=== PATIENT | female | born 1990 | race Hispanic/Latino ===

== ENCOUNTER 2017-11-15 11:07 | Emergency (ER) | payer OTHER ==
[2017-11-15 11:53] LABS: KETONE, URINE AUTO RFX NEGATIVE (NEGATIVE); MUCUS, URINE RFX SMALL (NEGATIVE); NITRITE, URINE AUTO RFX NEGATIVE (NEGATIVE); RBC, URINE AUTO RFX 2 /HPF (0-3); SPECIFIC GRAVITY UR AUTO RFX 1.014 (1.002-1.035); SQUAM EPITHELIAL CELL UR AURFX 7 /HPF (0-6); WBC, URINE AUTO RFX 2 /HPF (0-3)
[2017-11-15 11:56] LABS: LEUKOCYTE ESTERASE UR AUTO RFX TRACE (NEGATIVE)
[2017-11-15] MEDS: ONDANSETRON 4MG/2ML VIAL (J2405) IV (12:51)
[2017-11-15] MEDS: MORPHINE 2 MG/ML 1ML SYRINGE (J2270) IV (12:51)
[2017-11-15] MEDS: NS 1,000 ML IV (12:52)
[2017-11-15 12:59] LABS: BASO # 0.1 10^3/uL (0.0-0.2); BASO % 0.8 % (0.0-1.0); EOS % 0.5 % (0.0-3.0); HEMATOCRIT 34.2 % (36.0-47.0); HEMOGLOBIN 10.3 g/dl (12.0-16.0); IMMATURE GRANULOCYTE % 0.2 % (0-3.0); LYMPH # 2.4 10^3/uL (1.5-6.5); LYMPH % 38.7 % (24.0-44.0); MEAN CORPUSCULAR HEMOGLOBIN 21.8 pg (27.0-33.0); MEAN CORPUSCULAR HGB CONC 30.1 g/dl (32.0-36.5); MEAN CORPUSCULAR VOLUME 72.3 fl (80.0-96.0); MONO # 0.4 10^3/uL (0.0-0.8); MONO % 6.8 % (0.0-5.0); NEUTROPHILS # 3.3 10^3/uL (1.8-7.7); PLATELET COUNT, AUTOMATED 391 10^3/uL (150-450); RED BLOOD COUNT 4.73 10^6/uL (4.00-5.40); RED CELL DISTRIBUTION WIDTH 18.1 % (11.5-14.5); WHITE BLOOD COUNT 6.2 10^3/uL (4.0-10.0)
[2017-11-15 13:26] LABS: ALBUMIN 3.9 GM/DL (3.2-5.2); ALKALINE PHOSPHATASE 65 U/L (45-117); ALT/SGPT 16 U/L (12-78); ANION GAP 6 MEQ/L (8-16); AST/SGOT 12 U/L (7-37); BILIRUBIN,DIRECT 0.1 MG/DL (0.0-0.2); BILIRUBIN,TOTAL 0.7 MG/DL (0.2-1.0); BLOOD UREA NITROGEN 10 MG/DL (7-18); CALCIUM LEVEL 8.9 MG/DL (8.5-10.1); CARBON DIOXIDE LEVEL 28 MEQ/L (21-32); CHLORIDE LEVEL 104 MEQ/L (98-107); CREATININE FOR GFR 0.62 MG/DL (0.55-1.30); GLOMERULAR FILTRATION RATE > 60.0 (>60); GLUCOSE, FASTING 75 MG/DL (70-100); LIPASE 147 U/L (73-393); POTASSIUM SERUM 3.6 MEQ/L (3.5-5.1); SODIUM LEVEL 138 MEQ/L (136-145); TOTAL PROTEIN 8.8 GM/DL (6.4-8.2)
== END 2017-11-15 13:55 | disposition home or self-care (01) ==
LOC: M ED 11:07
DX: R10.9 Unspecified abdominal pain (principal); D64.9 Anemia, unspecified; R31.29 Other microscopic hematuria; Z98.84 Bariatric surgery status; Z87.891 Personal history of nicotine dependence
CPT/HCPCS: J2405

== ENCOUNTER 2017-12-01 22:17 | Emergency (ER) | payer OTHER ==
[2017-12-01] MEDS: MORPHINE 2 MG/ML 1ML SYRINGE (J2270) IV (23:33)
[2017-12-01] MEDS: NS 1,000 ML IV (23:37)
[2017-12-01 23:40] LABS: BASO # 0.1 10^3/uL (0.0-0.2); EOS # 0.1 10^3/uL (0.0-0.50); HEMOGLOBIN 9.7 g/dl (12.0-16.0); IMMATURE GRANULOCYTE % 0.3 % (0-3.0); LYMPH # 2.9 10^3/uL (1.5-6.5); LYMPH % 40.6 % (24.0-44.0); MEAN CORPUSCULAR HGB CONC 30.3 g/dl (32.0-36.5); MEAN CORPUSCULAR VOLUME 72.6 fl (80.0-96.0); MONO # 0.6 10^3/uL (0.0-0.8); NEUTROPHILS # 3.4 10^3/uL (1.8-7.7); NEUTROPHILS % 48.1 % (36.0-66.0); PLATELET COUNT, AUTOMATED 354 10^3/uL (150-450); RED BLOOD COUNT 4.41 10^6/uL (4.00-5.40); RED CELL DISTRIBUTION WIDTH 17.9 % (11.5-14.5); WHITE BLOOD COUNT 7.1 10^3/uL (4.0-10.0)
[2017-12-01 23:41] LABS: ALBUMIN 3.7 GM/DL (3.2-5.2); ALBUMIN/GLOBULIN RATIO 0.84 (1.00-1.93); ALKALINE PHOSPHATASE 66 U/L (45-117); ALT/SGPT 15 U/L (12-78); ANION GAP 7 MEQ/L (8-16); AST/SGOT 12 U/L (7-37); BILIRUBIN,DIRECT 0.2 MG/DL (0.0-0.2); BILIRUBIN,TOTAL 0.5 MG/DL (0.2-1.0); BLOOD UREA NITROGEN 9 MG/DL (7-18); CARBON DIOXIDE LEVEL 25 MEQ/L (21-32); CHLORIDE LEVEL 107 MEQ/L (98-107); CREATININE FOR GFR 0.72 MG/DL (0.55-1.30); GLOMERULAR FILTRATION RATE > 60.0 (>60); GLUCOSE, FASTING 76 MG/DL (70-100); LIPASE 201 U/L (73-393); POTASSIUM SERUM 3.8 MEQ/L (3.5-5.1); SODIUM LEVEL 139 MEQ/L (136-145); TOTAL PROTEIN 8.1 GM/DL (6.4-8.2)
[2017-12-01 23:53] LABS: INR 0.99; PROTHROMBIN TIME 13.2 SECONDS (12.4-14.5)
[2017-12-01 23:54] LABS: PARTIAL THROMBOPLASTIN TIME 27.5 SECONDS (26.8-37.9)
[2017-12-02 00:02] LABS: KETONE, URINE AUTO RFX NEGATIVE (NEGATIVE); LEUKOCYTE ESTERASE UR AUTO RFX NEGATIVE (NEGATIVE); NITRITE, URINE AUTO RFX NEGATIVE (NEGATIVE); RBC, URINE AUTO RFX 1 /HPF (0-3); SPECIFIC GRAVITY UR AUTO RFX 1.001 (1.002-1.035); SQUAM EPITHELIAL CELL UR AURFX 0 /HPF (0-6); WBC, URINE AUTO RFX 1 /HPF (0-3)
[2017-12-02 00:29] LABS: HCG, SERUM QUANTITATIVE < 1.0 MIU/ML
[2017-12-02] MEDS: MORPHINE 2 MG/ML 1ML SYRINGE (J2270) IV (01:05)
[2017-12-02 04:44] LABS: CHLAMYDIA DNA AMPLIFICATION NEGATIVE (NEGATIVE); GC DNA AMPLIFICATION NEGATIVE (NEGATIVE)
== END 2017-12-02 02:31 | disposition home or self-care (01) ==
LOC: M ED 12-02 02:31
DX: N93.9 Abnormal uterine and vaginal bleeding, unspecified (principal); D64.9 Anemia, unspecified; Z98.84 Bariatric surgery status
CPT/HCPCS: J2270

== ENCOUNTER 2018-03-22 18:57 | Observation (INO) | payer OTHER ==
[2018-03-22] MEDS: NS 1,000 ML IV (20:30)
[2018-03-22 21:09] LABS: BASO % 0.2 % (0.0-1.0); HEMATOCRIT 35.2 % (36.0-47.0); HEMOGLOBIN 10.6 g/dl (12.0-15.5); IMMATURE GRANULOCYTE % 0.1 % (0-3.0); LYMPH # 0.5 10^3/uL (1.5-6.5); LYMPH % 6.4 % (24.0-44.0); MEAN CORPUSCULAR HEMOGLOBIN 20.3 pg (27.0-33.0); MEAN CORPUSCULAR HGB CONC 30.1 g/dl (32.0-36.5); MEAN CORPUSCULAR VOLUME 67.6 fl (80.0-96.0); MONO # 0.1 10^3/uL (0.0-0.8); MONO % 1.4 % (0.0-5.0); NEUTROPHILS # 7.4 10^3/uL (1.8-7.7); NEUTROPHILS % 91.9 % (36.0-66.0); PLATELET COUNT, AUTOMATED 294 10^3/uL (150-450); RED BLOOD COUNT 5.21 10^6/uL (4.00-5.40); RED CELL DISTRIBUTION WIDTH 18.3 % (11.5-14.5); WHITE BLOOD COUNT 8.1 10^3/uL (4.0-10.0)
[2018-03-22 21:31] LABS: ALBUMIN 3.6 GM/DL (3.2-5.2); ALBUMIN/GLOBULIN RATIO 0.62 (1.00-1.93); ALKALINE PHOSPHATASE 62 U/L (45-117); ALT/SGPT 17 U/L (12-78); AMYLASE 48 U/L (25-115); ANION GAP 10 MEQ/L (8-16); AST/SGOT 16 U/L (7-37); BILIRUBIN,DIRECT 0.1 MG/DL (0.0-0.2); BILIRUBIN,TOTAL 0.5 MG/DL (0.2-1.0); BLOOD UREA NITROGEN 12 MG/DL (7-18); CALCIUM LEVEL 9.2 MG/DL (8.5-10.1); CARBON DIOXIDE LEVEL 24 MEQ/L (21-32); CHLORIDE LEVEL 104 MEQ/L (98-107); GLOMERULAR FILTRATION RATE > 60.0 (>60); GLUCOSE, FASTING 129 MG/DL (70-100); LIPASE 125 U/L (73-393); SODIUM LEVEL 138 MEQ/L (136-145); TOTAL PROTEIN 9.4 GM/DL (6.4-8.2)
[2018-03-22 21:32] LABS: LACTIC ACID SEPSIS PROTOCOL 1.7 MMOL/L (0.4-2.0)
[2018-03-22] MEDS: MORPHINE 4 MG/ML 1ML VIAL/SYRINGE (J2270) IV ×2 (22:05→23:27)
[2018-03-22] MEDS: ONDANSETRON 4MG/2ML VIAL (J2405) IV ×2 (22:05→23:13)
[2018-03-22] MEDS: GI COCKTAIL 50ML BTL(HYOSCYAMINE/MAALOX/LIDOCAINE VISCOUS)(1:3:1) PO (23:00)
[2018-03-23] MEDS ORDERED: MORPHINE 4 MG/ML 1ML VIAL/SYRINGE (J2270) IV ×2 (01:15)
[2018-03-23] MEDS ORDERED: ONDANSETRON 4MG/2ML VIAL (J2405) IV (01:15)
[2018-03-23] MEDS ORDERED: KETOROLAC 30 MG/ML VIAL (J1885) IV (01:15)
[2018-03-23] MEDS: METOCLOPRAMIDE INJ 10MG/2ML VIAL (J2765) IV (01:43)
[2018-03-23] MEDS: LR 1,000 ML IV ×3 (01:44→18:38)
[2018-03-23 08:26] LABS: BASO % 0.2 % (0.0-1.0); HEMATOCRIT 27.9 % (36.0-47.0); IMMATURE GRANULOCYTE % 0.2 % (0-3.0); LYMPH # 1.3 10^3/uL (1.5-6.5); LYMPH % 15.7 % (24.0-44.0); MEAN CORPUSCULAR HEMOGLOBIN 20.5 pg (27.0-33.0); MEAN CORPUSCULAR HGB CONC 30.5 g/dl (32.0-36.5); MEAN CORPUSCULAR VOLUME 67.4 fl (80.0-96.0); MONO # 0.6 10^3/uL (0.0-0.8); MONO % 7.2 % (0.0-5.0); NEUTROPHILS # 6.6 10^3/uL (1.8-7.7); NEUTROPHILS % 76.7 % (36.0-66.0); PLATELET COUNT, AUTOMATED 270 10^3/uL (150-450); RED BLOOD COUNT 4.14 10^6/uL (4.00-5.40); RED CELL DISTRIBUTION WIDTH 18.5 % (11.5-14.5); WHITE BLOOD COUNT 8.6 10^3/uL (4.0-10.0)
[2018-03-23 08:33] LABS: HEMOGLOBIN 8.5 g/dl (12.0-15.5)
[2018-03-23] MEDS: PANTOPRAZOLE 40MG INJ (PROTONIX) (C9113) IV (08:41)
[2018-03-23 08:49] LABS: ANION GAP 8 MEQ/L (8-16); BLOOD UREA NITROGEN 12 MG/DL (7-18); CALCIUM LEVEL 8.3 MG/DL (8.5-10.1); CARBON DIOXIDE LEVEL 24 MEQ/L (21-32); CHLORIDE LEVEL 110 MEQ/L (98-107); CREATININE FOR GFR 0.62 MG/DL (0.55-1.30); GLOMERULAR FILTRATION RATE > 60.0 (>60); GLUCOSE, FASTING 83 MG/DL (70-100); POTASSIUM SERUM 4.3 MEQ/L (3.5-5.1); SODIUM LEVEL 142 MEQ/L (136-145)
[2018-03-24] MEDS: LR 1,000 ML IV (02:33)
[2018-03-24] MEDS: PANTOPRAZOLE 40MG TAB (PROTONIX) PO (09:06)
[2018-03-24] MEDS: ACETAMINOPHEN TAB 650MG DOSE (2X325MG) PO (09:06)
== END 2018-03-24 15:12 | disposition home or self-care (01) ==
LOC: M ED INP 18:58 → M ED 18:57 → M PED 03-23 02:37
DX: K56.609 Unspecified intestinal obstruction, unspecified as to partial versus complete obstruction (principal); Z98.84 Bariatric surgery status; D64.9 Anemia, unspecified; R11.2 Nausea with vomiting, unspecified
CPT/HCPCS: C9113

== ENCOUNTER 2018-05-28 14:52 | Emergency (ER) | payer OTHER ==
[2018-05-28] MEDS: NS 1,000 ML IV ×2 (15:47→20:40)
[2018-05-28] MEDS: ONDANSETRON 4MG/2ML VIAL (J2405) IV (15:47)
[2018-05-28] MEDS: MORPHINE 4 MG/ML 1ML VIAL/SYRINGE (J2270) IV (15:47)
[2018-05-28 15:50] LABS: BASO # 0.1 10^3/uL (0.0-0.2); BASO % 0.6 % (0.0-1.0); EOS # 0.1 10^3/uL (0.0-0.50); EOS % 0.9 % (0.0-3.0); HEMATOCRIT 31.7 % (36.0-47.0); HEMOGLOBIN 9.3 g/dl (12.0-15.5); IMMATURE GRANULOCYTE % 0.3 % (0-3.0); LYMPH # 2.8 10^3/uL (1.5-6.5); LYMPH % 31.8 % (24.0-44.0); MEAN CORPUSCULAR HGB CONC 29.3 g/dl (32.0-36.5); MONO # 0.6 10^3/uL (0.0-0.8); MONO % 6.4 % (0.0-5.0); NEUTROPHILS # 5.2 10^3/uL (1.8-7.7); PLATELET COUNT, AUTOMATED 362 10^3/uL (150-450); RED BLOOD COUNT 4.66 10^6/uL (4.00-5.40); RED CELL DISTRIBUTION WIDTH 18.5 % (11.5-14.5); WHITE BLOOD COUNT 8.7 10^3/uL (4.0-10.0)
[2018-05-28 16:14] LABS: ALBUMIN 3.4 GM/DL (3.2-5.2); ALBUMIN/GLOBULIN RATIO 0.71 (1.00-1.93); ALKALINE PHOSPHATASE 51 U/L (45-117); ALT/SGPT 17 U/L (12-78); AMYLASE 48 U/L (25-115); ANION GAP 8 MEQ/L (8-16); AST/SGOT 10 U/L (7-37); BILIRUBIN,DIRECT 0.1 MG/DL (0.0-0.2); BILIRUBIN,TOTAL 0.4 MG/DL (0.2-1.0); BLOOD UREA NITROGEN 7 MG/DL (7-18); CALCIUM LEVEL 8.6 MG/DL (8.5-10.1); CARBON DIOXIDE LEVEL 26 MEQ/L (21-32); CHLORIDE LEVEL 107 MEQ/L (98-107); CREATININE FOR GFR 0.64 MG/DL (0.55-1.30); GLOMERULAR FILTRATION RATE > 60.0 (>60); GLUCOSE, FASTING 76 MG/DL (70-100); LIPASE 129 U/L (73-393); POTASSIUM SERUM 3.9 MEQ/L (3.5-5.1); SODIUM LEVEL 141 MEQ/L (136-145); TOTAL PROTEIN 8.2 GM/DL (6.4-8.2)
[2018-05-28] MEDS: PANTOPRAZOLE 40MG INJ (PROTONIX) (C9113) IV (16:21)
[2018-05-28] MEDS ORDERED: ISOVUE-370 76% 100ML VIAL (Q9967) As Ordered (16:21)
[2018-05-28] MEDS: KETOROLAC 30 MG/ML VIAL (J1885) IV (16:21)
[2018-05-28] MEDS: HYDROMORPHONE HCL 0.5 MG/ 0.5 ML SYRINGE (J1170 PER 1) IV ×4 (18:46→22:31)
[2018-05-28 20:50] LABS: KETONE, URINE AUTO RFX NEGATIVE (NEGATIVE); LEUKOCYTE ESTERASE UR AUTO RFX NEGATIVE (NEGATIVE); MUCUS, URINE RFX SMALL (NEGATIVE); NITRITE, URINE AUTO RFX NEGATIVE (NEGATIVE); RBC, URINE AUTO RFX 2 /HPF (0-3); SQUAM EPITHELIAL CELL UR AURFX 14 /HPF (0-6); WBC, URINE AUTO RFX 1 /HPF (0-3)
[2018-05-28 20:51] LABS: SPECIFIC GRAVITY UR AUTO RFX >1.060 (1.002-1.035)
== END 2018-05-28 22:48 | disposition short-term general hospital (02) ==
LOC: M ED 14:52
DX: K56.609 Unspecified intestinal obstruction, unspecified as to partial versus complete obstruction (principal); Z98.84 Bariatric surgery status
CPT/HCPCS: C9113

== ENCOUNTER → 2018-07-15 | Outpatient (REF) | payer OTHER ==
[2018-07-15 16:39] LABS: HEMATOCRIT 25.9 % (36.0-47.0); HEMOGLOBIN 8.1 g/dl (12.0-15.5); MEAN CORPUSCULAR HEMOGLOBIN 24.8 pg (27.0-33.0); MEAN CORPUSCULAR HGB CONC 31.3 g/dl (32.0-36.5); MEAN CORPUSCULAR VOLUME 79.2 fl (80.0-96.0); PLATELET COUNT, AUTOMATED 488 10^3/uL (150-450); RED BLOOD COUNT 3.27 10^6/uL (4.00-5.40); RED CELL DISTRIBUTION WIDTH 24.3 % (11.5-14.5); WHITE BLOOD COUNT 7.5 10^3/uL (4.0-10.0)
[2018-07-15 17:06] LABS: ALBUMIN 2.2 GM/DL (3.2-5.2); ALBUMIN/GLOBULIN RATIO 0.37 (1.00-1.93); ALKALINE PHOSPHATASE 76 U/L (45-117); ALT/SGPT 25 U/L (12-78); ANION GAP 8 MEQ/L (8-16); AST/SGOT 20 U/L (7-37); BILIRUBIN,TOTAL 0.2 MG/DL (0.2-1.0); BLOOD UREA NITROGEN 15 MG/DL (7-18); CALCIUM LEVEL 8.1 MG/DL (8.5-10.1); CARBON DIOXIDE LEVEL 26 MEQ/L (21-32); CHLORIDE LEVEL 104 MEQ/L (98-107); CREATININE FOR GFR 0.43 MG/DL (0.55-1.30); GLOMERULAR FILTRATION RATE > 60.0 (>60); GLUCOSE, FASTING 63 MG/DL (70-100); MAGNESIUM LEVEL 1.6 MG/DL (1.8-2.4); PHOSPHORUS LEVEL 3.5 MG/DL (2.5-4.9); POTASSIUM SERUM 4.2 MEQ/L (3.5-5.1); SODIUM LEVEL 138 MEQ/L (136-145); TOTAL PROTEIN 8.2 GM/DL (6.4-8.2); TRIGLYCERIDES LEVEL 65 MG/DL (<150)
== END ==
LOC: M LAB REF 15:24
DX: E46 Unspecified protein-calorie malnutrition (principal)

== ENCOUNTER → 2018-07-21 | Outpatient (REF) | payer OTHER ==
[2018-07-21 18:38] LABS: ALBUMIN 2.5 GM/DL (3.2-5.2); ALBUMIN/GLOBULIN RATIO 0.42 (1.00-1.93); ALKALINE PHOSPHATASE 67 U/L (45-117); ALT/SGPT 19 U/L (12-78); ANION GAP 10 MEQ/L (8-16); AST/SGOT 16 U/L (7-37); BILIRUBIN,TOTAL 0.3 MG/DL (0.2-1.0); BLOOD UREA NITROGEN 14 MG/DL (7-18); CALCIUM LEVEL 8.2 MG/DL (8.5-10.1); CARBON DIOXIDE LEVEL 22 MEQ/L (21-32); CHLORIDE LEVEL 105 MEQ/L (98-107); CREATININE FOR GFR 0.46 MG/DL (0.55-1.30); GLOMERULAR FILTRATION RATE > 60.0 (>60); GLUCOSE, FASTING 55 MG/DL (70-100); MAGNESIUM LEVEL 1.6 MG/DL (1.8-2.4); PHOSPHORUS LEVEL 4.3 MG/DL (2.5-4.9); POTASSIUM SERUM 4.4 MEQ/L (3.5-5.1); SODIUM LEVEL 137 MEQ/L (136-145); TOTAL PROTEIN 8.4 GM/DL (6.4-8.2)
[2018-07-21 19:48] LABS: HEMATOCRIT 27.6 % (36.0-47.0); HEMOGLOBIN 8.7 g/dl (12.0-15.5); MEAN CORPUSCULAR HGB CONC 31.5 g/dl (32.0-36.5); MEAN CORPUSCULAR VOLUME 79.3 fl (80.0-96.0); PLATELET COUNT, AUTOMATED 472 10^3/uL (150-450); RED BLOOD COUNT 3.48 10^6/uL (4.00-5.40); RED CELL DISTRIBUTION WIDTH 25.3 % (11.5-14.5); WHITE BLOOD COUNT 6.8 10^3/uL (4.0-10.0)
== END ==
LOC: M LAB REF 17:31
DX: E86.0 Dehydration (principal)

== ENCOUNTER → 2018-07-29 | Outpatient (REF) | payer OTHER ==
[2018-07-29 14:50] LABS: HEMATOCRIT 29.9 % (36.0-47.0); HEMOGLOBIN 9.3 g/dl (12.0-15.5); MEAN CORPUSCULAR HEMOGLOBIN 26.1 pg (27.0-33.0); MEAN CORPUSCULAR HGB CONC 31.1 g/dl (32.0-36.5); PLATELET COUNT, AUTOMATED 353 10^3/uL (150-450); RED BLOOD COUNT 3.56 10^6/uL (4.00-5.40); RED CELL DISTRIBUTION WIDTH 24.2 % (11.5-14.5); WHITE BLOOD COUNT 5.2 10^3/uL (4.0-10.0)
[2018-07-29 23:29] LABS: ALBUMIN 2.7 GM/DL (3.2-5.2); ALBUMIN/GLOBULIN RATIO 0.56 (1.00-1.93); ALKALINE PHOSPHATASE 55 U/L (45-117); ALT/SGPT 25 U/L (12-78); ANION GAP 9 MEQ/L (8-16); AST/SGOT 19 U/L (7-37); BILIRUBIN,TOTAL 0.4 MG/DL (0.2-1.0); BLOOD UREA NITROGEN 10 MG/DL (7-18); CALCIUM LEVEL 8.9 MG/DL (8.5-10.1); CARBON DIOXIDE LEVEL 23 MEQ/L (21-32); CHLORIDE LEVEL 108 MEQ/L (98-107); CREATININE FOR GFR 0.52 MG/DL (0.55-1.30); GLOMERULAR FILTRATION RATE > 60.0 (>60); GLUCOSE, FASTING 68 MG/DL (70-100); MAGNESIUM LEVEL 1.5 MG/DL (1.8-2.4); POTASSIUM SERUM 3.8 MEQ/L (3.5-5.1); SODIUM LEVEL 140 MEQ/L (136-145); TOTAL PROTEIN 7.5 GM/DL (6.4-8.2)
== END ==
LOC: M LAB REF 14:31
DX: E86.0 Dehydration (principal)

== ENCOUNTER → 2018-08-04 | Outpatient (REF) | payer OTHER ==
[2018-08-04 18:41] LABS: HEMATOCRIT 32.1 % (36.0-47.0); HEMOGLOBIN 10.2 g/dl (12.0-15.5); MEAN CORPUSCULAR HEMOGLOBIN 26.8 pg (27.0-33.0); MEAN CORPUSCULAR HGB CONC 31.8 g/dl (32.0-36.5); MEAN CORPUSCULAR VOLUME 84.3 fl (80.0-96.0); PLATELET COUNT, AUTOMATED 328 10^3/uL (150-450); RED BLOOD COUNT 3.81 10^6/uL (4.00-5.40); RED CELL DISTRIBUTION WIDTH 21.2 % (11.5-14.5); WHITE BLOOD COUNT 5.6 10^3/uL (4.0-10.0)
[2018-08-04 19:17] LABS: ALBUMIN 2.9 GM/DL (3.2-5.2); ALBUMIN/GLOBULIN RATIO 0.56 (1.00-1.93); ALKALINE PHOSPHATASE 57 U/L (45-117); ALT/SGPT 34 U/L (12-78); ANION GAP 9 MEQ/L (8-16); AST/SGOT 20 U/L (7-37); BILIRUBIN,TOTAL 0.3 MG/DL (0.2-1.0); BLOOD UREA NITROGEN 11 MG/DL (7-18); CALCIUM LEVEL 8.2 MG/DL (8.5-10.1); CARBON DIOXIDE LEVEL 24 MEQ/L (21-32); CHLORIDE LEVEL 108 MEQ/L (98-107); CREATININE FOR GFR 0.53 MG/DL (0.55-1.30); GLOMERULAR FILTRATION RATE > 60.0 (>60); GLUCOSE, FASTING 63 MG/DL (70-100); MAGNESIUM LEVEL 1.4 MG/DL (1.8-2.4); PHOSPHORUS LEVEL 3.2 MG/DL (2.5-4.9); POTASSIUM SERUM 3.7 MEQ/L (3.5-5.1); SODIUM LEVEL 141 MEQ/L (136-145); TOTAL PROTEIN 8.1 GM/DL (6.4-8.2)
== END ==
LOC: M LAB REF 17:44
DX: E46 Unspecified protein-calorie malnutrition (principal)
CPT/HCPCS: 83735

== ENCOUNTER 2018-08-05 20:00 | Emergency (ER) | payer OTHER ==
[2018-08-05 21:30] LABS: BASO % 0.4 % (0.0-1.0); EOS # 0.1 10^3/uL (0.0-0.50); EOS % 2.5 % (0.0-3.0); HEMATOCRIT 34.8 % (36.0-47.0); HEMOGLOBIN 10.9 g/dl (12.0-15.5); IMMATURE GRANULOCYTE % 0.4 % (0-3.0); LYMPH # 2.5 10^3/uL (1.5-6.5); LYMPH % 47.8 % (24.0-44.0); MEAN CORPUSCULAR HEMOGLOBIN 26.8 pg (27.0-33.0); MEAN CORPUSCULAR HGB CONC 31.3 g/dl (32.0-36.5); MEAN CORPUSCULAR VOLUME 85.7 fl (80.0-96.0); MONO # 0.3 10^3/uL (0.0-0.8); MONO % 5.8 % (0.0-5.0); NEUTROPHILS # 2.2 10^3/uL (1.8-7.7); NEUTROPHILS % 43.1 % (36.0-66.0); PLATELET COUNT, AUTOMATED 324 10^3/uL (150-450); RED BLOOD COUNT 4.06 10^6/uL (4.00-5.40); RED CELL DISTRIBUTION WIDTH 21.1 % (11.5-14.5); WHITE BLOOD COUNT 5.1 10^3/uL (4.0-10.0)
[2018-08-05 21:38] LABS: INR 0.96; PROTHROMBIN TIME 12.8 SECONDS (12.1-14.4)
[2018-08-05 21:39] LABS: PARTIAL THROMBOPLASTIN TIME 29.5 SECONDS (25.4-37.6)
[2018-08-05 21:53] LABS: ERYTHROCYTE SEDIMENTATION RATE 43 mm/hr (0-20)
[2018-08-05 21:57] LABS: ALBUMIN 3.2 GM/DL (3.2-5.2); ALBUMIN/GLOBULIN RATIO 0.58 (1.00-1.93); ALKALINE PHOSPHATASE 63 U/L (45-117); ALT/SGPT 35 U/L (12-78); ANION GAP 8 MEQ/L (8-16); AST/SGOT 21 U/L (7-37); BILIRUBIN,DIRECT < 0.1 MG/DL (0.0-0.2); BILIRUBIN,TOTAL 0.2 MG/DL (0.2-1.0); BLOOD UREA NITROGEN 13 MG/DL (7-18); C REACTIVE PROTEIN QUANTITATIV < 0.30 MG/DL (0.00-0.30); CALCIUM LEVEL 8.5 MG/DL (8.5-10.1); CARBON DIOXIDE LEVEL 25 MEQ/L (21-32); CHLORIDE LEVEL 107 MEQ/L (98-107); CREATININE FOR GFR 0.68 MG/DL (0.55-1.30); GLOMERULAR FILTRATION RATE > 60.0 (>60); GLUCOSE, FASTING 73 MG/DL (70-100); POTASSIUM SERUM 3.8 MEQ/L (3.5-5.1); SODIUM LEVEL 140 MEQ/L (136-145); TOTAL PROTEIN 8.7 GM/DL (6.4-8.2)
[2018-08-05] MEDS ORDERED: ISOVUE-370 76% 100ML VIAL (Q9967) As Ordered (22:00)
[2018-08-05 23:00] LABS: D-DIMER QUANT 1979.7 ng/ml (<500)
[2018-08-05] MEDS ORDERED: APIXABAN 5 MG TAB (ELIQUIS) PO (23:45)
== END 2018-08-06 | disposition home or self-care (01) ==
LOC: M ED 08-06
DX: M79.601 Pain in right arm (principal); R93.1 Abnormal findings on diagnostic imaging of heart and coronary circulation; B35.0 Tinea barbae and tinea capitis; R06.02 Shortness of breath; Z87.19 Personal history of other diseases of the digestive system; Z90.3 Acquired absence of stomach [part of]; Z98.84 Bariatric surgery status; Z83.2 Family history of diseases of the blood and blood-forming organs and certain disorders involving the immune mechanism; Z86.19 Personal history of other infectious and parasitic diseases
CPT/HCPCS: Q9967

== ENCOUNTER 2018-08-20 13:05 | Inpatient (IN) | payer OTHER ==
[2018-08-20] MEDS: MULTIVITAMINS CHILDREN'S CHEWABLE TABLET PO (09:00)
[2018-08-20] MEDS: VITAMIN D 1,000 INTERNATIONAL UNITS TABLET PO (09:00)
[~2018-08-20 13:05] MED LIST: OMEPRAZOLE 20 MG CAP PO
[2018-08-20] MEDS: NS 1,000 ML IV (13:48)
[2018-08-20] MEDS: PANTOPRAZOLE 40MG INJ (PROTONIX) (C9113) IV ×2 (13:48→21:00)
[2018-08-20] MEDS: MORPHINE 4 MG/ML 1ML VIAL/SYRINGE (J2270) IV (13:49)
[2018-08-20 13:56] LABS: BASO % 0.7 % (0.0-1.0); EOS # 0.1 10^3/uL (0.0-0.50); EOS % 1.4 % (0.0-3.0); HEMATOCRIT 38.3 % (36.0-47.0); IMMATURE GRANULOCYTE % 0.3 % (0-3.0); LYMPH # 2.2 10^3/uL (1.5-6.5); LYMPH % 37.3 % (24.0-44.0); MEAN CORPUSCULAR HGB CONC 31.3 g/dl (32.0-36.5); MEAN CORPUSCULAR VOLUME 89.3 fl (80.0-96.0); MONO # 0.4 10^3/uL (0.0-0.8); MONO % 6.9 % (0.0-5.0); NEUTROPHILS # 3.1 10^3/uL (1.8-7.7); NEUTROPHILS % 53.4 % (36.0-66.0); PLATELET COUNT, AUTOMATED 302 10^3/uL (150-450); RED BLOOD COUNT 4.29 10^6/uL (4.00-5.40); RED CELL DISTRIBUTION WIDTH 16.9 % (11.5-14.5); WHITE BLOOD COUNT 5.8 10^3/uL (4.0-10.0)
[2018-08-20 14:06] LABS: INR 1.01; PROTHROMBIN TIME 13.4 SECONDS (12.1-14.4)
[2018-08-20 14:07] LABS: PARTIAL THROMBOPLASTIN TIME 32.8 SECONDS (25.4-37.6)
[2018-08-20] MEDS: GASTROGRAFIN SOLUTION 30ML PO ×2 (14:07→14:36)
[2018-08-20 14:27] LABS: CONTROL LINE HCG INT CTR LINE PRESENT; HCG, SERUM QUALITATIVE NEGATIVE (NEGATIVE)
[2018-08-20 14:37] LABS: ALBUMIN 3.6 GM/DL (3.2-5.2); ALBUMIN/GLOBULIN RATIO 0.73 (1.00-1.93); ALKALINE PHOSPHATASE 49 U/L (45-117); ALT/SGPT 15 U/L (12-78); AMYLASE 70 U/L (25-115); ANION GAP 8 MEQ/L (8-16); AST/SGOT 11 U/L (7-37); BILIRUBIN,DIRECT < 0.1 MG/DL (0.0-0.2); BILIRUBIN,TOTAL 0.4 MG/DL (0.2-1.0); BLOOD UREA NITROGEN 9 MG/DL (7-18); CALCIUM LEVEL 9.3 MG/DL (8.5-10.1); CARBON DIOXIDE LEVEL 25 MEQ/L (21-32); CHLORIDE LEVEL 107 MEQ/L (98-107); GLOMERULAR FILTRATION RATE > 60.0 (>60); GLUCOSE, FASTING 42 MG/DL (70-100); LIPASE 259 U/L (73-393); POTASSIUM SERUM 3.7 MEQ/L (3.5-5.1); SODIUM LEVEL 140 MEQ/L (136-145); TOTAL PROTEIN 8.5 GM/DL (6.4-8.2)
[2018-08-20 14:38] LABS: LACTIC ACID SEPSIS PROTOCOL 2.4 MMOL/L (0.4-2.0)
[2018-08-20] MEDS: DEXTROSE 50% 50 ML SYRINGE IV (15:03)
[2018-08-20] MEDS: fentaNYL 100 MCG/2 ML INJECTION (J3010) IV ×2 (15:04→17:43)
[2018-08-20 15:34] LABS: BEDSIDE GLUCOSE 70 MG/DL (70-105)
[2018-08-20] MEDS ORDERED: ISOVUE-370 76% 100ML VIAL (Q9967) As Ordered (15:34)
[2018-08-20] MEDS: GI COCKTAIL 50ML BTL(HYOSCYAMINE/MAALOX/LIDOCAINE VISCOUS)(1:3:1) PO (15:40)
[2018-08-20] MEDS: D5W/LR 1,000 ML IV (15:40)
[2018-08-20 16:14] LABS: BEDSIDE GLUCOSE 54 MG/DL (70-105)
[2018-08-20 17:14] LABS: BEDSIDE GLUCOSE 67 MG/DL (70-105)
[2018-08-20 17:44] LABS: HEMATOCRIT 32.7 % (36.0-47.0); HEMOGLOBIN 10.2 g/dl (12.0-15.5); MEAN CORPUSCULAR HEMOGLOBIN 27.6 pg (27.0-33.0); MEAN CORPUSCULAR HGB CONC 31.2 g/dl (32.0-36.5); MEAN CORPUSCULAR VOLUME 88.6 fl (80.0-96.0); PLATELET COUNT, AUTOMATED 232 10^3/uL (150-450); RED BLOOD COUNT 3.69 10^6/uL (4.00-5.40); RED CELL DISTRIBUTION WIDTH 16.8 % (11.5-14.5); WHITE BLOOD COUNT 5.7 10^3/uL (4.0-10.0)
[2018-08-20 18:11] LABS: LIPASE 418 U/L (73-393)
[2018-08-20 18:17] LABS: BEDSIDE GLUCOSE 75 MG/DL (70-105)
[2018-08-20] MEDS ORDERED: MORPHINE 4 MG/ML 1ML VIAL/SYRINGE (J2270) IV (19:15)
[2018-08-20] MEDS ORDERED: ONDANSETRON 4MG/2ML VIAL (J2405) IV (19:15)
[2018-08-20] MEDS ORDERED: ENOXAPARIN 80 MG/0.8 ML SYRINGE (J1650) SC (20:00)
[2018-08-20] MEDS ORDERED: HYDROMORPHONE HCL 0.5 MG/ 0.5 ML SYRINGE (J1170 PER 1) IV (21:30)
[2018-08-20] MEDS: HYDROMORPHONE HCL 0.5 MG/ 0.5 ML SYRINGE (J1170 PER 1) IV (21:55)
[2018-08-20] MEDS: FERROUS SULFATE 325MG TAB PO (22:32)
[2018-08-20] MEDS: LACTOBACILLUS ACIDOPHILUS CAP (BACID) PO (22:33)
[2018-08-20] MEDS: SENOKOT S TAB PO (22:34)
[2018-08-20 23:34] LABS: BEDSIDE GLUCOSE 72 MG/DL (70-105)
[2018-08-21] MEDS: D5W/LR 1,000 ML IV ×4 (00:18→15:07)
[2018-08-21 00:23] LABS: BEDSIDE GLUCOSE 72 MG/DL (70-105)
[2018-08-21] MEDS: HYDROMORPHONE HCL 0.5 MG/ 0.5 ML SYRINGE (J1170 PER 1) IV ×2 (01:10→19:17)
[2018-08-21] MEDS: ENOXAPARIN 80 MG/0.8 ML SYRINGE (J1650) SC ×2 (01:11→12:44)
[2018-08-21 04:54] LABS: BEDSIDE GLUCOSE 73 MG/DL (70-105)
[2018-08-21 07:49] LABS: HEMATOCRIT 30.5 % (36.0-47.0); HEMOGLOBIN 9.8 g/dl (12.0-15.5); MEAN CORPUSCULAR HEMOGLOBIN 27.8 pg (27.0-33.0); MEAN CORPUSCULAR HGB CONC 32.1 g/dl (32.0-36.5); MEAN CORPUSCULAR VOLUME 86.4 fl (80.0-96.0); PLATELET COUNT, AUTOMATED 243 10^3/uL (150-450); RED BLOOD COUNT 3.53 10^6/uL (4.00-5.40); RED CELL DISTRIBUTION WIDTH 16.3 % (11.5-14.5); WHITE BLOOD COUNT 4.5 10^3/uL (4.0-10.0)
[2018-08-21 08:08] LABS: INR 1.08; PROTHROMBIN TIME 14.2 SECONDS (12.1-14.4)
[2018-08-21 08:19] LABS: ALBUMIN 2.6 GM/DL (3.2-5.2); ALBUMIN/GLOBULIN RATIO 0.59 (1.00-1.93); ALKALINE PHOSPHATASE 33 U/L (45-117); ALT/SGPT 12 U/L (12-78); ANION GAP 6 MEQ/L (8-16); AST/SGOT 10 U/L (7-37); BILIRUBIN,TOTAL 0.3 MG/DL (0.2-1.0); BLOOD UREA NITROGEN 8 MG/DL (7-18); CALCIUM LEVEL 8.5 MG/DL (8.5-10.1); CARBON DIOXIDE LEVEL 26 MEQ/L (21-32); CHLORIDE LEVEL 108 MEQ/L (98-107); CREATININE FOR GFR 0.56 MG/DL (0.55-1.30); GLOMERULAR FILTRATION RATE > 60.0 (>60); GLUCOSE, FASTING 73 MG/DL (70-100); LIPASE 180 U/L (73-393); MAGNESIUM LEVEL 1.8 MG/DL (1.8-2.4); POTASSIUM SERUM 3.7 MEQ/L (3.5-5.1); SODIUM LEVEL 140 MEQ/L (136-145)
[2018-08-21] MEDS: FERROUS SULFATE 325MG TAB PO (10:40)
[2018-08-21] MEDS: LACTOBACILLUS ACIDOPHILUS CAP (BACID) PO (10:40)
[2018-08-21] MEDS: MULTIVITAMINS CHILDREN'S CHEWABLE TABLET PO (10:41)
[2018-08-21] MEDS: VITAMIN D 1,000 INTERNATIONAL UNITS TABLET PO (10:41)
[2018-08-21] MEDS: SENOKOT S TAB PO ×2 (10:42→20:58)
[2018-08-21 11:04] LABS: BEDSIDE GLUCOSE 69 MG/DL (70-105)
[2018-08-21 16:51] LABS: BEDSIDE GLUCOSE 60 MG/DL (70-105)
[2018-08-21 18:14] LABS: BEDSIDE GLUCOSE 73 MG/DL (70-105)
[2018-08-21 20:43] LABS: BEDSIDE GLUCOSE 68 MG/DL (70-105)
[2018-08-21] MEDS: PANTOPRAZOLE 40MG INJ (PROTONIX) (C9113) IV (20:58)
[2018-08-22] MEDS: HYDROMORPHONE HCL 0.5 MG/ 0.5 ML SYRINGE (J1170 PER 1) IV (00:02)
[2018-08-22 00:05] LABS: BEDSIDE GLUCOSE 98 MG/DL (70-105)
[2018-08-22] MEDS: ENOXAPARIN 80 MG/0.8 ML SYRINGE (J1650) SC (00:06)
[2018-08-22 07:17] LABS: HEMATOCRIT 33.2 % (36.0-47.0); HEMOGLOBIN 10.7 g/dl (12.0-15.5); MEAN CORPUSCULAR HEMOGLOBIN 27.9 pg (27.0-33.0); MEAN CORPUSCULAR HGB CONC 32.2 g/dl (32.0-36.5); MEAN CORPUSCULAR VOLUME 86.5 fl (80.0-96.0); PLATELET COUNT, AUTOMATED 260 10^3/uL (150-450); RED BLOOD COUNT 3.84 10^6/uL (4.00-5.40); RED CELL DISTRIBUTION WIDTH 15.9 % (11.5-14.5); WHITE BLOOD COUNT 4.8 10^3/uL (4.0-10.0)
[2018-08-22 07:28] LABS: INR 1.04; PROTHROMBIN TIME 13.7 SECONDS (12.1-14.4)
[2018-08-22 07:41] LABS: ALBUMIN 2.8 GM/DL (3.2-5.2); ALBUMIN/GLOBULIN RATIO 0.57 (1.00-1.93); ALKALINE PHOSPHATASE 39 U/L (45-117); ALT/SGPT 15 U/L (12-78); ANION GAP 9 MEQ/L (8-16); AST/SGOT 9 U/L (7-37); BILIRUBIN,TOTAL 0.3 MG/DL (0.2-1.0); BLOOD UREA NITROGEN 7 MG/DL (7-18); CALCIUM LEVEL 8.5 MG/DL (8.5-10.1); CARBON DIOXIDE LEVEL 25 MEQ/L (21-32); CHLORIDE LEVEL 105 MEQ/L (98-107); CREATININE FOR GFR 0.54 MG/DL (0.55-1.30); GLOMERULAR FILTRATION RATE > 60.0 (>60); GLUCOSE, FASTING 68 MG/DL (70-100); LIPASE 202 U/L (73-393); MAGNESIUM LEVEL 1.8 MG/DL (1.8-2.4); POTASSIUM SERUM 3.5 MEQ/L (3.5-5.1); SODIUM LEVEL 139 MEQ/L (136-145); TOTAL PROTEIN 7.7 GM/DL (6.4-8.2)
[2018-08-22] MEDS: MULTIVITAMINS CHILDREN'S CHEWABLE TABLET PO (10:25)
[2018-08-22] MEDS: SENOKOT S TAB PO (10:26)
[2018-08-22] MEDS: LACTOBACILLUS ACIDOPHILUS CAP (BACID) PO (10:26)
[2018-08-22] MEDS: VITAMIN D 1,000 INTERNATIONAL UNITS TABLET PO (10:26)
[2018-08-22] MEDS: FERROUS SULFATE 325MG TAB PO (10:27)
[2018-08-22 11:36] LABS: BEDSIDE GLUCOSE 115 MG/DL (70-105)
[2018-08-29 14:10] LABS: "\\\"INSULIN \\\"\\\"PRO\\\"\\\" LEVEL\\\"" 2.5 pmol/L (0.0-10.0); ACETOHEXAMIDE Negative ug/mL (20-60); CHLORPROPAMIDE Negative ug/mL (75-250); GLIMEPIRIDE Negative ng/mL (80-250); GLIPIZIDE Negative ng/mL (200-1000); GLYBURIDE Negative ng/mL (UP TO 1500); INSULIN FREE 2.6 uU/mL (.); INSULIN LEVEL 3.9 uIU/mL (2.6-24.9); INSULIN TOTAL2 2.6 uU/mL (.); NATEGLINIDE Negative ng/mL (UP TO 10000); REPAGLINIDE Negative ng/mL (UP TO 200); TOLAZAMIDE Negative ug/mL (UP TO 80); TOLBUTAMIDE Negative ug/mL (40-100)
[2018-08-29 14:10] LABS: C-PEPTIDE 1.3 ng/mL (1.1-4.4)
== END 2018-08-22 12:45 | disposition home or self-care (01) | DRG 439 ==
LOC: M MS5PR 08-21 00:03 → M ED 13:05 → M ED INP 21:53
DX: K85.90 Acute pancreatitis without necrosis or infection, unspecified (principal); I82.611 Acute embolism and thrombosis of superficial veins of right upper extremity; E16.2 Hypoglycemia, unspecified; Z79.01 Long term (current) use of anticoagulants; Z98.84 Bariatric surgery status; Z79.899 Other long term (current) drug therapy; Z88.5 Allergy status to narcotic agent

== ENCOUNTER 2018-08-24 23:56 | Emergency (ER) | payer OTHER ==
[2018-08-25] MEDS: HYDROMORPHONE HCL 0.5 MG/ 0.5 ML SYRINGE (J1170 PER 1) IV (00:45)
[2018-08-25] MEDS: NS 1,000 ML IV (00:45)
[2018-08-25 01:01] LABS: BASO # 0.1 10^3/uL (0.0-0.2); BASO % 0.7 % (0.0-1.0); EOS # 0.1 10^3/uL (0.0-0.50); EOS % 1.5 % (0.0-3.0); HEMATOCRIT 37.7 % (36.0-47.0); HEMOGLOBIN 12.1 g/dl (12.0-15.5); IMMATURE GRANULOCYTE % 0.1 % (0-3.0); LYMPH # 3.2 10^3/uL (1.5-6.5); MEAN CORPUSCULAR HEMOGLOBIN 28.1 pg (27.0-33.0); MEAN CORPUSCULAR HGB CONC 32.1 g/dl (32.0-36.5); MEAN CORPUSCULAR VOLUME 87.5 fl (80.0-96.0); MONO # 0.5 10^3/uL (0.0-0.8); MONO % 7.2 % (0.0-5.0); NEUTROPHILS # 3.6 10^3/uL (1.8-7.7); NEUTROPHILS % 47.5 % (36.0-66.0); PLATELET COUNT, AUTOMATED 325 10^3/uL (150-450); RED BLOOD COUNT 4.31 10^6/uL (4.00-5.40); RED CELL DISTRIBUTION WIDTH 15.3 % (11.5-14.5); WHITE BLOOD COUNT 7.5 10^3/uL (4.0-10.0)
[2018-08-25 01:18] LABS: ALBUMIN 3.6 GM/DL (3.2-5.2); ALBUMIN/GLOBULIN RATIO 0.73 (1.00-1.93); ALKALINE PHOSPHATASE 49 U/L (45-117); ALT/SGPT 19 U/L (12-78); ANION GAP 6 MEQ/L (8-16); AST/SGOT 11 U/L (7-37); BILIRUBIN,DIRECT < 0.1 MG/DL (0.0-0.2); BILIRUBIN,TOTAL 0.2 MG/DL (0.2-1.0); BLOOD UREA NITROGEN 19 MG/DL (7-18); CALCIUM LEVEL 8.7 MG/DL (8.5-10.1); CARBON DIOXIDE LEVEL 25 MEQ/L (21-32); CHLORIDE LEVEL 107 MEQ/L (98-107); CREATININE FOR GFR 0.68 MG/DL (0.55-1.30); GLOMERULAR FILTRATION RATE > 60.0 (>60); GLUCOSE, FASTING 71 MG/DL (70-100); LIPASE 331 U/L (73-393); POTASSIUM SERUM 4.1 MEQ/L (3.5-5.1); SODIUM LEVEL 138 MEQ/L (136-145); TOTAL PROTEIN 8.5 GM/DL (6.4-8.2)
[2018-08-25] MEDS: PANTOPRAZOLE 40MG INJ (PROTONIX) (C9113) IV (01:45)
== END 2018-08-25 02:27 | disposition home or self-care (01) ==
LOC: M ED 23:56
DX: K29.70 Gastritis, unspecified, without bleeding (principal); Z98.84 Bariatric surgery status; Z87.19 Personal history of other diseases of the digestive system; Z79.899 Other long term (current) drug therapy; Z79.01 Long term (current) use of anticoagulants; Z88.5 Allergy status to narcotic agent
CPT/HCPCS: C9113

== ENCOUNTER 2018-10-28 13:09 | Emergency (ER) | payer OTHER ==
[~2018-10-28] VITALS: Ht 167.6 cm; Wt 77.3 kg
[~2018-10-28 13:09] MED LIST changes: +ACID100C PO; +ATIV1TAB7 PO; +CENTCHW4 PO; +COLA100C5 PO; +ELIQ5TAB PO; +IRON65TA PO; +MAPA500T2 PO; +NORCOTAB PO; +OMEP40CA2 PO; -OMEPRAZOLE 20 MG CAP PO; +OXYC15TA76 PO; +PRENTAB9 PO; +PROT1TAB2 PO; +TERB250T12 PO; +TPNINJ3 IV; +TRAM50TA2 PO; +TYLE325T5 PO; +VITA100066 PO
[2018-10-28] MEDS ORDERED: ONDANSETRON 4MG/2ML VIAL (J2405) IV ONE (16:15)
[2018-10-28] MEDS ORDERED: KETOROLAC 30 MG/ML VIAL (J1885) IV ONE (16:15)
[2018-10-28] MEDS ORDERED: NS 1,000 ML IV ONE (16:15)
[2018-10-28 16:44] LABS: BASO % 0.5 % (0.0-1.0); EOS % 0.5 % (0.0-3.0); HEMATOCRIT 42.1 % (36.0-47.0); HEMOGLOBIN 13.9 g/dl (12.0-15.5); LYMPH # 0.8 10^3/uL (1.5-6.5); LYMPH % 19.8 % (24.0-44.0); MEAN CORPUSCULAR HEMOGLOBIN 28.7 pg (27.0-33.0); MEAN CORPUSCULAR VOLUME 86.8 fl (80.0-96.0); MONO # 0.4 10^3/uL (0.0-0.8); MONO % 8.5 % (0.0-5.0); NEUTROPHILS # 2.9 10^3/uL (1.8-7.7); NEUTROPHILS % 70.2 % (36.0-66.0); PLATELET COUNT, AUTOMATED 233 10^3/uL (150-450); RED BLOOD COUNT 4.85 10^6/uL (4.00-5.40); WHITE BLOOD COUNT 4.1 10^3/uL (4.0-10.0)
[2018-10-28 16:55] LABS: URINE PREG TEST NEGATIVE (NEGATIVE)
[2018-10-28 17:00] LABS: INR 0.95; PROTHROMBIN TIME 12.8 SECONDS (12.1-14.4)
[2018-10-28 17:01] LABS: PARTIAL THROMBOPLASTIN TIME 29.6 SECONDS (25.4-37.6)
[2018-10-28 17:03] LABS: D-DIMER QUANT 605.95 ng/ml (<500)
[2018-10-28 17:10] LABS: ALBUMIN 3.7 GM/DL (3.2-5.2); ALT/SGPT 25 U/L (12-78); BILIRUBIN,DIRECT 0.1 MG/DL (0.0-0.2); BILIRUBIN,TOTAL 0.5 MG/DL (0.2-1.0); BLOOD UREA NITROGEN 7 MG/DL (7-18); C REACTIVE PROTEIN QUANTITATIV 0.98 MG/DL (0.00-0.30); CALCIUM LEVEL 8.7 MG/DL (8.5-10.1); CARBON DIOXIDE LEVEL 26 MEQ/L (21-32); CHLORIDE LEVEL 106 MEQ/L (98-107); CREATININE FOR GFR 0.67 MG/DL (0.55-1.30); GLOMERULAR FILTRATION RATE > 60.0 (>60); GLUCOSE, FASTING 67 MG/DL (70-100); LIPASE 149 U/L (73-393); POTASSIUM SERUM 4.1 MEQ/L (3.5-5.1); SODIUM LEVEL 138 MEQ/L (136-145); TOTAL PROTEIN 8.6 GM/DL (6.4-8.2)
[2018-10-28] MEDS ORDERED: ACETAMINOPHEN 325 MG TAB PO ONE (17:15)
--- NOTE | 2018-10-28 17:53 | REP ---
CHEST, TWO VIEWS: There is no evidence of acute infiltrate. No pleural effusion is seen. The heart is normal in size. The mediastinal silhouette is unremarkable. The visualized osseous structures are intact. IMPRESSION: No acute pulmonary disease. Electronically Signed by Khris Paulino MD 10/28/2018 07:28 P
[2018-10-28] MEDS ORDERED: ISOVUE-370 76% 100ML VIAL (Q9967) As Ordered ONE (18:02)
[2018-10-28 18:26] LABS: ERYTHROCYTE SEDIMENTATION RATE 18 mm/hr (0-20)
--- NOTE | 2018-10-28 18:50 | REPVR ---
EXAM: CT Angiography Chest With Contrast EXAM DATE/TIME: 10/28/2018 6:04 PM CLINICAL HISTORY: 28 years old, female; Signs and symptoms; Shortness of breath; Additional info: Sob/cp TECHNIQUE: Axial computed tomographic angiography images of the chest with intravenous contrast using CT angiography protocol. All CT scans at this facility use at least one of these dose optimization techniques: automated exposure control; mA and/or kV adjustment per patient size (includes targeted exams where dose is matched to clinical indication); or iterative reconstruction. Coronal and sagittal reformatted images were created and reviewed. MIP reconstructed images were created and reviewed. CONTRAST: 100 ml of ISOVUE 370 administered intravenously. COMPARISON: CT ANGIO CHEST 08/05/2018 9:55 PM FINDINGS: Pulmonary arteries: No focal pulmonary artery filling defect to suggest acute pulmonary embolus. Aorta: No thoracic aortic aneurysm or dissection. Lungs: Pulmonary vascular/interstitial pattern does not suggest active pulmonary edema. No suspicious lung mass or air space process. No central endobronchial lesion. Pleural space: No pleural effusion or pneumothorax. Stomach and bowel: Postsurgical changes of gastric bypass procedure are present. Upper abdomen: Limited visualization of upper abdomen shows no concerning finding. Lymph nodes: No enlarged mediastinal lymph nodes. Bones/joints: Bony structures show no acute fracture or destructive process. Soft tissues: Unremarkable. IMPRESSION: 1. No evidence of acute pulmonary embolus. 2. No other acute or concerning focal intrathoracic abnormality. Electronically signed by: Augusto Washington On 10/28/2018 18:50:32 PM
--- NOTE | 2018-10-28 18:52 | REPVR ---
EXAM: CT Abdomen and Pelvis With Contrast EXAM DATE/TIME: 10/28/2018 6:04 PM CLINICAL HISTORY: 28 years old, female; Pain; Other: Chest; Additional info: Sob/cp TECHNIQUE: Axial computed tomography images of the abdomen and pelvis with intravenous contrast. All CT scans at this facility use at least one of these dose optimization techniques: automated exposure control; mA and/or kV adjustment per patient size (includes targeted exams where dose is matched to clinical indication); or iterative reconstruction. Coronal and sagittal reformatted images were created and reviewed. CONTRAST: 100 ml of ISOVUE 370 administered intravenously. COMPARISON: CT ABD/PEL W/IV ORAL CONTRAS 08/20/2018 3:29 PM FINDINGS: Lower thorax: No suspicious mass or airspace process in the visualized lung bases. ABDOMEN: Liver: Liver appears normal with no focal abnormality. Gallbladder and bile ducts: Gallbladder is present and shows no evidence of gallstone. Pancreas: Pancreas appears normal. No focal mass or peripancreatic inflammation. Spleen: Spleen appears homogeneous without focal mass. Adrenals: Adrenal glands are normal in appearance. Kidneys and ureters: Kidneys appear normal, with no stone, solid mass or hydronephrosis. Stomach and bowel: No evidence of small bowel obstruction. Postsurgical changes of gastric bypass procedure are present. No evidence of acute diverticulitis. Appendix: Normal caliber appendix is identified, with no adjacent inflammation. PELVIS: Bladder: Bladder appears normal. Reproductive: Unremarkable as visualized. ABDOMEN and PELVIS: Intraperitoneal space: No pneumoperitoneum. Bones/joints: Bony structures show no acute fracture or destructive process. Soft tissues: No effacement of normal fat planes in the ischiorectal fossa. Vasculature: Main portal and splenic veins enhance normally. Lymph nodes: Normal. No enlarged lymph nodes. IMPRESSION: 1. No acute or concerning focal abdominal or pelvic process. 2. No apparent complication involving the patient's gastric bypass procedure Electronically signed by: Augusto Washington On 10/28/2018 18:52:20 PM
[2018-10-28] MEDS ORDERED: CIPR-249 PO (19:08)
[2018-10-28] MEDS ORDERED: CARA1TAB6 PO (19:08)
[2018-10-28] MEDS ORDERED: REGL5TAB2 PO (19:08)
[2018-10-28 19:17] VITALS: BP 101/64
--- NOTE | 2018-10-29 17:35 | ECGEPIP ---
Stationary ECG Study [facility] - ED Test Date: 2018-10-28 Pat Name: YOSEF TYLER Department: Room: - Gender: F Skein Dyer: lr : 1990 Requested By: ROSA VALVERDE Order Number: [id number] Reading MD: Adrianna Elliott Measurements Intervals [place] Rate: 82 P: 51 [place]: 131 QRS: 33 QRSD: 84 T: 47 QT: 357 QTc: 418 Interpretive Statements SINUS RHYTHM INCREASED RATE 08/05/18 Electronically Signed On 10-29-2018 17:34:53 EST by Adrianna Elliott
== END 2018-10-28 19:21 | disposition home or self-care (01) ==
LOC: M ED 13:09
DX: K29.70 Gastritis, unspecified, without bleeding (principal); N39.0 Urinary tract infection, site not specified; R07.9 Chest pain, unspecified; R50.9 Fever, unspecified; M54.9 Dorsalgia, unspecified; F41.9 Anxiety disorder, unspecified; R51 Headache; Z86.718 Personal history of other venous thrombosis and embolism; Z98.84 Bariatric surgery status; Z88.5 Allergy status to narcotic agent; Z79.899 Other long term (current) drug therapy; Z79.01 Long term (current) use of anticoagulants
CPT/HCPCS: 71046; 71275; 74177; 80048; 80076; 81001; 83690; 84703; 85025; 85379; 85610; 85652; 85730; 86140; 87086; 93005; 96361; 96374; 96375; 99284; J1885; J2405; Q9967

== ENCOUNTER → 2018-11-18 | Outpatient (REF) | payer OTHER ==
[~2018-11-18] MED LIST changes: +CARA1TAB6 PO; +CIPR-249 PO; +REGL5TAB2 PO
== END ==
LOC: M LAB REF 12:27
PROVIDERS: ATTEND Internal Medicine Gastroenterology
DX: R19.7 Diarrhea, unspecified (principal)

== ENCOUNTER 2019-01-05 13:07 | Day surgery (SDC) | payer OTHER ==
[~2019-01-05] VITALS: Ht 170.2 cm; Wt 76.2 kg
[~2019-01-05 13:07] MED LIST changes: +HYDR-3715 PO; +LIDOCAINE 2% INJ 100 MG/5 ML SDV (FOR ANES.) As Ordered ONE; -NORCOTAB PO; +NS 1,000 ML IV ONE; +PROPOFOL 200 MG/20 ML VIAL As Ordered ONE; +VITA100018 PO
[2019-01-05] MEDS ORDERED: fentaNYL 100 MCG/2 ML INJECTION (J3010) As Ordered ONE (13:45)
[2019-01-05 14:20] VITALS: BP 112/70
[2019-01-05] MEDS ORDERED: PROPOFOL 200 MG/20 ML VIAL As Ordered ONE (14:35)
--- NOTE | 2019-01-05 14:47 | ROOR ---
Patient Name: Agnes Jenkins Procedure Date: 01/05/2019 1:43 PM Date of : 1990 Age: 28 Room: [facility] Gender: Female Note Status: Finalized Procedure: Upper GI endoscopy Indications: Epigastric abdominal pain, Abdominal pain in the left upper quadrant Providers: Vidal Howard MD Referring MD: ANAM MENDIETA MD Requesting Provider: Medicines: Monitored Anesthesia Care Complications: No immediate complications. Procedure: Pre-Anesthesia Assessment: - Prior to the procedure, a History and Physical was performed, and patient medications and allergies were reviewed. The patient is competent. The risks and benefits of the procedure and the sedation options and risks were discussed with the patient. All questions were answered and informed consent was obtained. Patient identification and proposed procedure were verified by the physician, the nurse and the anesthesiologist in the procedure room. Mental Status Examination: alert and oriented. Airway Examination: normal oropharyngeal airway and neck mobility. Respiratory Examination: clear to auscultation. CV Examination: normal. Prophylactic Antibiotics: The patient does not require prophylactic antibiotics. Prior Anticoagulants: The patient has taken no previous anticoagulant or antiplatelet agents. ASA Grade Assessment: II - A patient with mild systemic disease. After reviewing the risks and benefits, the patient was deemed in satisfactory condition to undergo the procedure. The anesthesia plan was to use monitored anesthesia care (MAC). Immediately prior to administration of medications, the patient was re-assessed for adequacy to receive sedatives. The heart rate, respiratory rate, oxygen saturations, blood pressure, adequacy of pulmonary ventilation, and response to care were monitored throughout the procedure. The physical status of the patient was re-assessed after the procedure. The Endoscope was introduced through the mouth, and advanced to the second part of duodenum. The upper GI endoscopy was accomplished without difficulty. The patient tolerated the procedure well. Findings: The examined esophagus was normal. Evidence of a gastric bypass was found. A gastric pouch with a small size was found. The staple line appeared intact. The gastrojejunal anastomosis was characterized by healthy appearing mucosa. This was traversed. The jejunojejunal anastomosis was characterized by healthy appearing mucosa. The czgfihex-at-[id number] limb was not examined as it could not be found. Two biopsies were obtained with cold forceps for histology and Helicobacter pylori testing at the anastomosis, as well as two biopsies in the gastric fundus. Verification of patient identification for the specimen was done by the physician and nurse using the patient's name, date and medical record number. Estimated blood loss was minimal. The examined jejunum was normal. Biopsies for histology were taken with a cold forceps for evaluation of celiac disease. Impression: - Normal esophagus. - Gastric bypass with a small-sized pouch and intact staple line. Gastrojejunal anastomosis characterized by healthy appearing mucosa. - Normal examined jejunum. Biopsied. - Biopsies performed at the anastomosis and in the gastric fundus. Recommendation: - Patient has a contact number available for emergencies. The signs and symptoms of potential delayed complications were discussed with the patient. Return to normal activities tomorrow. Written discharge instructions were provided to the patient. - Resume previous diet. - Continue present medications. - Await pathology results. - Based on the biopsy results you will receive a phone call from GI clinic in 2-3 weeks to review the pathology results AND/OR your results will be faxed to your Primary care physician. - Return to primary care physician. Vidal Howard MD Vidal Howard MD 01/05/2019 2:46:49 PM Electronically signed by Vidal Howard MD Number of Addenda: 0 Note Initiated On: 01/05/2019 1:43 PM Estimated Blood Loss: Estimated blood loss was minimal.
== END 2019-01-05 14:55 | disposition home or self-care (01) ==
LOC: M OPP 13:07
PROVIDERS: ATTEND Internal Medicine Gastroenterology
DX: R10.13 Epigastric pain (principal); R10.12 Left upper quadrant pain; Z98.84 Bariatric surgery status
CPT/HCPCS: 43239; 88305; J3010

== ENCOUNTER 2019-03-04 19:23 | Emergency (ER) | payer OTHER ==
[~2019-03-04] VITALS: Ht 170.2 cm; Wt 79.5 kg
[~2019-03-04 19:23] MED LIST changes: -LIDOCAINE 2% INJ 100 MG/5 ML SDV (FOR ANES.) As Ordered ONE; -NS 1,000 ML IV ONE; -PROPOFOL 200 MG/20 ML VIAL As Ordered ONE
--- NOTE | 2019-03-04 20:06 | ECGEPIP ---
[facility] - ED Test Date: 2019-03-04 Pat Name: YOSEF TYLER Department: Room: - Gender: Female Chief Counsel: rudy : 1990 Requested By: CAITLIN HORTON Order Number: [id number] Reading MD: Sukh Huddleston Measurements Intervals [place] Rate: 72 P: 46 [place]: 129 QRS: 18 QRSD: 88 T: 45 QT: 366 QTc: 401 Interpretive Statements SINUS RHYTHM WITH SINUS ARRHYTHMIA Electronically Signed on 03-04-2019 20:06:38 EDT by Sukh Huddleston
[2019-03-04] MEDS ORDERED: IPRATROPIUM 0.5MG/ALBUTEROL 2.5MG INH SOL UD 3ML (DUONEB)(J7620) NEB ONE (21:00)
[2019-03-04] MEDS ORDERED: methylPREDNISolone INJ 125 MG/2 ML VIAL (J2930) IM ONE (21:00)
--- NOTE | 2019-03-04 21:37 | REP ---
Clinical: Acute headache . Comparison: None . Findings: The ventricles, sulci, and cisterns are normal in position and appearance. Paulino-white differentiation is maintained. No acute intracranial hemorrhage, mass/mass effect, pathology or trauma/injury. No evidence for acute infarction. No extra-axial fluid collection. Calvarium is intact. Moderate to significant mucoperiosteal changes and opacification of the frontal, ethmoid, and sphenoid sinuses Impression: Sinusitis. No evidence for acute intracranial pathology or trauma/injury. Electronically Signed by Tom Bright MD 03/04/2019 09:29 P
--- NOTE | 2019-03-04 21:38 | REP ---
Clinical: acute cough . Comparison: 10/28/2018 . Technique: PA and lateral. Findings: The mediastinum and cardiac silhouette are normal. The lung pink are clear and without acute consolidation, effusion, or pneumothorax. The skeletal structures are intact and normal. Impression: 1. No acute cardiopulmonary process. Electronically Signed by Tom Bright MD 03/04/2019 09:30 P
[2019-03-04] MEDS ORDERED: PRED20TA PO (22:09)
[2019-03-04] MEDS ORDERED: AUGM500T34 PO (22:09)
[2019-03-04] MEDS ORDERED: AUGMENTIN 875 MG TAB PO ONE (22:15)
[2019-03-04 22:32] VITALS: BP 117/61
== END 2019-03-04 22:33 | disposition home or self-care (01) ==
LOC: M ED 19:23
DX: J01.90 Acute sinusitis, unspecified (principal); J20.9 Acute bronchitis, unspecified; K21.9 Gastro-esophageal reflux disease without esophagitis; Z98.84 Bariatric surgery status; Z87.891 Personal history of nicotine dependence; Z79.899 Other long term (current) drug therapy; Z88.5 Allergy status to narcotic agent
CPT/HCPCS: 70450; 71046; 93005; 94640; 96372; 99284; J2930

== ENCOUNTER 2019-11-11 15:08 | Emergency (ER) | payer OTHER ==
[~2019-11-11] VITALS: Ht 170.2 cm; Wt 89.4 kg
[~2019-11-11 15:08] MED LIST changes: +AUGM500T34 PO; -OMEP40CA2 PO; +OMEP40CA97 PO; +PRED20TA PO
[2019-11-11 17:10] LABS: BASO % 0.7 % (0.0-1.0); EOS % 0.7 % (0.0-3.0); HEMATOCRIT 42.5 % (36.0-47.0); HEMOGLOBIN 12.7 g/dl (12.0-15.5); LYMPH # 2.4 10^3/uL (1.5-5.0); LYMPH % 40.7 % (24.0-44.0); MEAN CORPUSCULAR HEMOGLOBIN 26.5 pg (27.0-33.0); MEAN CORPUSCULAR HGB CONC 29.9 g/dl (32.0-36.5); MEAN CORPUSCULAR VOLUME 88.5 fl (80.0-96.0); MONO # 0.4 10^3/uL (0.0-0.8); MONO % 6.3 % (0.0-5.0); NEUTROPHILS % 51.4 % (36.0-66.0); PLATELET COUNT, AUTOMATED 290 10^3/uL (150-450); WHITE BLOOD COUNT 5.9 10^3/uL (4.0-10.0)
[2019-11-11 17:27] LABS: ALBUMIN 4.1 GM/DL (3.2-5.2); BILIRUBIN,DIRECT 0.2 MG/DL (0.0-0.2); BILIRUBIN,TOTAL 0.5 MG/DL (0.2-1.0); TOTAL PROTEIN 8.7 GM/DL (6.4-8.2)
[2019-11-11] MEDS: GASTROGRAFIN SOLUTION 30ML PO SCH ×2 (19:26→20:12)
[2019-11-11] MEDS ORDERED: ISOVUE-370 76% 100ML VIAL (Q9967) As Ordered ONE (21:07)
--- NOTE | 2019-11-11 22:17 | REPVR ---
PROCEDURE INFORMATION: Exam: CT Abdomen And Pelvis With Contrast Exam date and time: 11/11/2019 10:03 PM Age: 29 years old Clinical indication: Abdominal pain; Epigastric; Additional info: Burning epigastric pain, HX of ulcer TECHNIQUE: Imaging protocol: Computed tomography of the abdomen and pelvis with intravenous contrast. Radiation optimization: All CT scans at this facility use at least one of these dose optimization techniques: automated exposure control; mA and/or kV adjustment per patient size (includes targeted exams where dose is matched to clinical indication); or iterative reconstruction. Contrast material: ISOVUE 370; Contrast volume: 100 ml; Contrast route: IV; COMPARISON: CT ABD/PEL W/IV CONTRAST ONLY 10/28/2018 5:56 PM FINDINGS: Liver: There is a diffuse decrease in hepatic parenchymal density, consistent with steatosis. Gallbladder and bile ducts: Normal. No calcified stones. No ductal dilation. Pancreas: Normal. No ductal dilation. Spleen: Normal. No splenomegaly. Adrenals: Normal. No mass. Kidneys and ureters: Normal. No hydronephrosis. Stomach and bowel: This patient is status post gastric bypass surgery. Appendix: No evidence of appendicitis. Intraperitoneal space: Unremarkable. No free air. No significant fluid collection. Vasculature: Unremarkable. No abdominal aortic aneurysm. Lymph nodes: Unremarkable. No enlarged lymph nodes. Bladder: Unremarkable as visualized. Reproductive: Unremarkable as visualized. Bones/joints: Unremarkable. No acute fracture. Soft tissues: Unremarkable. IMPRESSION: 1. There is a diffuse decrease in hepatic parenchymal density, consistent with steatosis. 2. This patient is status post gastric bypass surgery. 3. No acute findings. Electronically signed by: Scout Garcia On 11/11/2019 22:17:27 PM
[2019-11-11 22:21] VITALS: BP 136/74
[2019-11-11] MEDS ORDERED: GI COCKTAIL 50ML BTL(HYOSCYAMINE/MAALOX/LIDOCAINE VISCOUS)(1:3:1) PO ONE (22:30)
== END 2019-11-11 22:44 | disposition home or self-care (01) ==
LOC: M ED 15:08
DX: R10.13 Epigastric pain (principal); Z87.19 Personal history of other diseases of the digestive system; Z98.84 Bariatric surgery status; Z90.49 Acquired absence of other specified parts of digestive tract; F17.200 Nicotine dependence, unspecified, uncomplicated; Z79.899 Other long term (current) drug therapy; Z88.5 Allergy status to narcotic agent
CPT/HCPCS: 74177; 80047; 80076; 81001; 83690; 84702; 85025; 99284; Q9963; Q9967

== ENCOUNTER 2019-12-16 20:28 | Emergency (ER) | payer OTHER ==
[~2019-12-16] VITALS: Ht 170.2 cm; Wt 90.4 kg
[2019-12-16] MEDS ORDERED: DERMABOND TOPICAL SKIN ADHESIVE TOP ONE (23:45)
[2019-12-16 23:50] VITALS: BP 131/69
--- NOTE | 2019-12-17 03:24 | REP ---
Clinical: Trauma. Technique: AP, lateral, bilateral oblique views right hand . Findings: The osseous structures and joint spaces are intact and normal. There is no evidence for acute fracture or dislocation. Surrounding soft tissues are unremarkable. No subcutaneous emphysema or radiodense foreign body. Impression: Normal right hand series . No acute fracture or dislocation. Electronically Signed by Tom Bright MD 12/17/2019 03:15 A
== END 2019-12-16 23:57 | disposition home or self-care (01) ==
LOC: M ED 20:28
DX: S61.421A Laceration with foreign body of right hand, initial encounter (principal); S60.511A Abrasion of right hand, initial encounter; W01.198A Fall on same level from slipping, tripping and stumbling with subsequent striking against other object, initial encounter; Y92.099 Unspecified place in other non-institutional residence as the place of occurrence of the external cause; Y93.9 Activity, unspecified; Y99.9 Unspecified external cause status; F41.9 Anxiety disorder, unspecified; Z98.84 Bariatric surgery status; Z86.711 Personal history of pulmonary embolism; Z87.01 Personal history of pneumonia (recurrent); Z87.19 Personal history of other diseases of the digestive system; F17.200 Nicotine dependence, unspecified, uncomplicated; Z88.5 Allergy status to narcotic agent

== ENCOUNTER → 2020-08-10 | Outpatient (CLI) | payer OTHER ==
[~2020-08-10] VITALS: Ht 170.2 cm; Wt 96.5 kg
[~2020-08-10] MED LIST changes: +CYCL5TAB PO; +OXYC-1 PO; -OXYC15TA76 PO
[2020-08-10 15:31] VITALS: BP 124/71
== END ==
LOC: M LDO 15:16
PROVIDERS: ATTEND Registered Nurse
DX: O26.893 Other specified pregnancy related conditions, third trimester (principal); R10.9 Unspecified abdominal pain; M25.551 Pain in right hip; M25.552 Pain in left hip
CPT/HCPCS: 59025; 76815; G0378; G0463

== ENCOUNTER 2020-08-29 00:28 | Outpatient (CLI) | payer OTHER ==
--- NOTE | 2020-08-29 03:48 | IPNPDOC ---
Text Note Date of Service The patient was seen on 08/29/20. NOTE 30yo at 38+2wks presenting for c/o ctx's since 1999 occurring every 5 minutes. She denies VB, LOF, or DFM. Vitals: normotensive, afebrile NST: reactive [place]: irregular ctx's q3-8 minutes PE: GEN: well-appearing in NAD HEENT: NC/AT, airway patent and self-maintained RESP: no exaggerated respiratory effort appreciated CARDS: well-perfused ABD: soft, NT, ND, gravid, fundus NT SVE: cervix 2-3/50/-4, repeat 1 hour later unchanged, no VB, no abnml discharge, no pooling Ext: no edema A/P: 30yo at 38+2wks presenting for c/o ctx's and found to not be in active labor. Counseled on strict labor precautions, FKCs. Patient to f/u as scheduled for [facility] appt in 2 days as scheduled DHEERAJ HERNANDEZ DO Aug 29, 2020 03:48
== END 2020-08-29 02:20 | disposition home or self-care (01) ==
LOC: M LDO 00:28
DX: O47.1 False labor at or after 37 completed weeks of gestation (principal); Z3A.38 38 weeks gestation of pregnancy
CPT/HCPCS: 59025; G0378; G0463

== ENCOUNTER 2020-09-02 15:35 | Inpatient (IN) | payer OTHER ==
[~2020-09-02] VITALS: Ht 170.2 cm; Wt 97.5 kg
[2020-09-02] MEDS ORDERED: PRENTAB9 PO (15:48)
[2020-09-02] MEDS ORDERED: FERR325T81 PO (15:49)
[2020-09-02] MEDS ORDERED: FOLTTAB9 PO (15:49)
[2020-09-02] MEDS ORDERED: VITAD400CA FT (15:50)
[2020-09-02] MEDS ORDERED: VITA100T59 PO (15:50)
[2020-09-02 15:58] VITALS: BP 107/73
[2020-09-02 18:05] LABS: HEMATOCRIT 33.2 % (36.0-47.0); HEMOGLOBIN 9.7 g/dl (12.0-15.5); MEAN CORPUSCULAR HEMOGLOBIN 21.3 pg (27.0-33.0); MEAN CORPUSCULAR HGB CONC 29.2 g/dl (32.0-36.5); PLATELET COUNT, AUTOMATED 364 10^3/uL (150-450); RED BLOOD COUNT 4.55 10^6/uL (4.00-5.40); WHITE BLOOD COUNT 10.9 10^3/uL (4.0-10.0)
[2020-09-02 18:18] VITALS: BP 116/67
--- NOTE | 2020-09-02 18:29 | HPEPDOC ---
Obstetrical History & Physical General Date of Admission Sep 02, 2020 at 17:30 History of Present Illness 30yo (h/o twins) at 39+1wks presenting for worsening painful ctx's. She mad e spontaneous cervical change in triage from 3 to 5cm. Endorses spotting VB. Denies LOF or DFM. Chief Complaint: Contractions, term Information Provided By: Patient Care Care: Good Care Dating Final EDC: Sep 08, 2020 Final EDC for Daily Update: Sep 08, 2020 Final EDC by: LMP (c/w 11+2wk U/S) Antepartum Course Diagnos(e)s Bariatric surgery complicating Rh negative Height (inches): 67 Pre- weight (lbs.): 198 Admission Weight (lbs.): 217 Change in Weight (lbs.): 19 Past Medical History Past Obstetrical History : Past Obstetrical History: Multigravida ( - for di/di twins 2008, 2015, pelvis proven to 7lbs) PROJECT LEAD History: No pertinent history Past Medical History Medical History Obesity GERD Surgical History: Other (2014 gastric bypass, 2018 - bowel obstruction requiring ex-lap with take-back due to sepsis) Family History Significant Family History: Renal disease (Father, Brother) Social History Marital Status: Family situation: Spouse/partner home Psychosocial History: No pertinent psych hx * Smoker: non-smoker Alcohol: Denies Drugs: denies Abuse Violence Screening Have you been hit/kicked/slapp: No Have you been sexually assault: No Imunizations Tdap status: current ([id number]) Influenza Status: current ([id number]) Allergies Coded Allergies: morphine (Verified Adverse Reaction, Intermediate, Pt states vomiting and severe headache with morphine, 03/04/19) Medications Scheduled Ascorbic Acid (Vitamin C) 100 Mg Tablet, 100 MG PO DAILY B12/Levomefolate Calcium/B-6 (Foltx Tablet) 1 Each Tablet, 1 TAB PO DAILY Ferrous Sulfate (Iron) 325 Mg Tablet, 1 TAB PO DAILY No.137/Iron/Folic Acd ( Vitamin Tablet) 1 Each Tablet, 1 TAB PO DAILY Miscellaneous Medications Vitamin D (Vitamin D3) 10 Mcg Tablet, 400 MCG FT Physical Examination Physical Examination GENERAL: Alert and oriented times three. ABDOMEN: Gravid and non-tender to touch. FETUS: Is vertex (VTX) by sterile vaginal examination (SVE), fetus is vertex (VTX) by Wood. HEART RATE: well-perfused, no edema LUNGS: no exaggerated respiratory effort appreciated : NEFG EXTREMITIES: No edema Vital Signs/I&O Vital Signs Date Time Temp Pulse Resp B/P (MAP) Pulse Ox O2 Delivery O2 Flow Rate FiO2 09/02/20 15:59 98.2 09/02/20 15:58 109 107/73 (84) Pertinent Laboratoy Data Blood Type: O- RBC Antibody Screen: Negative HIV: Negative Hepatitis B: Negative Rapid Plasma Reagin: Nonreactive Rubella: Immune Varicella: Immune Chlamydia/Gonorrhea: Negative Group B Streptococcus: Negative Cystic Fibrosis: Negative Anatomy Ultrasound Ultrasound Date: May 23, 2020 Placenta Location: Anterior Normal Anatomy: Yes Other Ultrasounds [id number] - EFW 45th percentile Vaginal Examination Dilation: 9 cm Effacement: 100% Station: 0 Cervical Consistency: Soft Cervical Position: Anterior Presentation: Cephalic presentation Assessment Heart Rate (FHR): 125 Variability: Moderate Accelerations: None Decelerations: Variable Tocometer Contractions: Yes Frequency: every 1-3 min. Multi-drug resistant Organism: No history of MDRO Assessment/Plan Assessment 30yo at 39+1wks presenting for c/o ctx's. Patient made spontaneous cervical change while in observation in triage from 3 to 5cm then rapidly progressed in 20 minutes to 9/c/0. SROM noted with thin meconium fluid. FHRT cat II for variable decels. GBS neg. Plan Admit and orient. [employer] and consent. Diet: clears until delivery then regular diet Group B Streptococcus (GBS) negative. Labs and intravenous (IV) per unit protocol. Lactated Ringers (LR): Bolus 500 mL, then at 125 mL/hr. Anticipate normal spontaneous delivery (). If patient cannot get epidural in time, counseled on option of pudendal nerve block for pain mgmt C-S as appropriate. DHEERAJ HERNANDEZ DO Sep 02, 2020 18:29
--- NOTE | 2020-09-02 18:51 | DNPDOC ---
[facility] Delivery Note Delivery Note DATE OF DELIVERY: 09/02/20 PREDELIVERY DIAGNOSIS: 39+1/7 weeks' gestation and labor. POST DELIVERY DIAGNOSIS: Delivered. PROCEDURE: Spontaneous vaginal delivery DEVIL TENDER: Dr. Dheeraj Hernandez ANESTHESIA: Pudendal nerve block ESTIMATED BLOOD LOSS: 100 mL. FINDINGS: 7 pound 2 ounce 3220g male infant, Score 8/9, nuchal cord times x2. DELIVERY SUMMARY: Patient found to be c/c/0. Patient prepped for delivery. Patient verbally cou nseled on pudendal nerve block and desired to proceed. 10ml of lidocaine plain was used for a bilateral pudendal nerve block (5ml each side) and an additional 1ml was used in the perineum for a block. With excellent maternal effort over several sets of pushes, spontaneous vaginal delivery of a viable male . Presentation was NABILA with restitution to ROT with left shoulder anterior position. Anterior shoulder and body delivered without difficulty. Tight nuchal cord x2 delivered through and reduced manually on delivery field. Infant with good tone and spontaneous cry on delivery field therefore dried and suctioned then placed on maternal abdomen with care transferred to Team. Pitocin IV bolus initiated. After 5 minutes of delayed cord clamping, three vessel cord clamped x2 and cut by FOB. Third stage spontaneous with intact placenta. Fundal massage firm with hemostasis noted. Inspection revealed no lacerations. EBL 100ml. Mother and stable and bonding upon my leaving the room. DHEERAJ HERNANDEZ DO Sep 02, 2020 18:30
[2020-09-02 21:19] VITALS: BP 120/60
[2020-09-03 06:27] VITALS: BP 96/55
--- NOTE | 2020-09-03 08:52 | IPNPDOC ---
Progress Note Date of Service: Sep 03, 2020 Day#: 1 Progress Note SUBJECT: Agnes is a 30yo s/p doing well day # 1. She has been ambulating, voiding spontaneously without issue and tolerating regular diet. Breast feeding without issue. Reports lochia is decreasing. OBJECTIVE: VITAL SIGNS: Within normal limits, afebrile. Alert and oriented times three. Abdomen: Fundus firm at U-2. Soft, NTTP. : scant lochia, mild edema ASSESSMENT: Agnes is a 30yo s/p doing well day # 1. Vitals within normal limits, afebrile, hemodynamically stable with no evidence of infection. PLAN: 1. Discharge to home tomorrow. 2. Tylenol and Motrin for pain. 3. Encourage breast feeding and ambulation. 4. Encourage regular diet and PO hydration 5. Routine PP visit in 6 weeks in clinic. 6. Discussed return precautions at length. VS, I&O, 24H, Fishbone Vital Signs/I&O Vital Signs Date Time Temp Pulse Resp B/P (MAP) Pulse Ox O2 Delivery O2 Flow Rate FiO2 09/03/20 06:27 98.5 71 17 96/55 (69) 09/02/20 21:19 99 I&O- Last 24 Hours up to 6 AM 09/03/20 06:00 Output Total 620 ml Balance -620 ml Laboratory Data 24H LABS Laboratory Tests 2 09/02/20 17:48: Nucleated Red Blood Cells % (auto) 0.0, Syphilis Serology NONREACTIVE 09/02/20 17:49: Serology Scanned Report Hepatitis B Testing CBC/BMP Laboratory Tests 09/02/20 17:48 DHEERAJ HERNANDEZ DO Sep 03, 2020 08:52
[2020-09-03 17:57] VITALS: BP 109/68
[2020-09-04 06:28] VITALS: BP 97/55
[2020-09-04] MEDS ORDERED: ACET-683 PO (08:10)
[2020-09-04] MEDS ORDERED: AMER20OI TOP (08:10)
--- NOTE | 2020-09-04 08:14 | DS.PDOC ---
Discharge Summary General Date of Admission Sep 02, 2020 at 17:30 Date of Discharge Sep 04, 2020 Discharge Summary HOSPITAL COURSE: Ms. Jenkins is a 31 yo G3 now P4 who underwent an uncomplicated on 03Sep2020 after being admitted for active labor. Her course was unremarkable. On her day of discharge she met all appropriate discharge criteria. She was ambulating, voiding, tolerating a regular diet, and had minimal lochia. DISCHARGE MEDICATIONS: Please see below. ALLERGIES: Please see below. PHYSICAL EXAMINATION ON DISCHARGE: VITAL SIGNS: Please see below. GENERAL: AAOX3, NAD ABDOMINAL EXAMINATION: Fundus firm at U-2. No fundal tenderness EXTREMITIES: No edema PSYCHIATRIC EXAMINATION: Affect appropriate LABORATORY DATA: Please see below. ACTIVITY: Pelvic rest for 6 weeks DIET: Regular DISCHARGE PLAN: Discharge home DISPOSITION: Discharge home on 04Sep2020 . DISCHARGE INSTRUCTIONS: 1. Nothing in the vagina for 6 weeks ITEMS TO FOLLOWUP ON ON OUTPATIENT: 1. Call to schedule a visit for 6 weeks post delivery DISCHARGE CONDITION: Stable. TIME SPENT ON DISCHARGE: Greater than 20 minutes. Chapis Bang DO Vital Signs/I&Os Vital Signs Date Time Temp Pulse Resp B/P (MAP) Pulse Ox O2 Delivery O2 Flow Rate FiO2 09/04/20 06:28 97.3 85 17 97/55 (69) 09/02/20 21:19 99 Discharge Medications Scheduled Ascorbic Acid (Vitamin C) 100 Mg Tablet, 100 MG PO DAILY, (Reported) B12/Levomefolate Calcium/B-6 (Foltx Tablet) 1 Each Tablet, 1 TAB PO DAILY, (Reported) Ferrous Sulfate (Iron) 325 Mg Tablet, 1 TAB PO DAILY, (Reported) No.137/Iron/Folic Acd ( Vitamin Tablet) 1 Each Tablet, 1 TAB PO DAILY, (Reported) Scheduled PRN Acetaminophen (Acetaminophen) 500 Mg Tablet, 1,000 MG PO Q6HP PRN for PAIN LEVEL 6-10 Benzocaine (Americaine) 20% Oint...g., 0 DOSE TOP Q4H PRN for PAIN Miscellaneous Medications Vitamin D (Vitamin D3) 10 Mcg Tablet, 400 MCG FT, (Reported) Allergies Coded Allergies: morphine (Verified Adverse Reaction, Intermediate, Pt states vomiting and severe headache with morphine, 03/04/19) CHAPIS BANG DO Sep 04, 2020 08:14
== END 2020-09-04 18:30 | disposition home or self-care (01) | DRG 807 ==
LOC: M LDO 15:35 → M LDI 17:30 → M OBS 20:43
PROC: 10E0XZZ Delivery of Products of Conception, External Approach (ICD-10-PCS; principal; 2020-09-02)
DX: O69.1XX0 Labor and delivery complicated by cord around neck, with compression, not applicable or unspecified (principal); Z37.0 Single live birth; Z3A.39 39 weeks gestation of pregnancy; Z88.5 Allergy status to narcotic agent